=== PATIENT | female | born 1980 | race Hispanic/Latino ===

== ENCOUNTER 2021-09-19 14:40 | Observation (INO) | payer BC ==
[~2021-09-19] VITALS: Ht 154.9 cm; Wt 90.5 kg
--- NOTE | 2021-09-19 18:53 | NUR ---
PT ADVISED OF WAIT TIME. PT REPORTS HER PCP CALL DR. Ledbetter AND THE PLAN WAS FOR ADMISSION TO [facility] OP INFECTION. PT WITH RIGHT TOTAL KNEE REPLACEMENT AND INFECTION. PT STABLE. CALL LIGHT IN REACH.
[2021-09-19 21:48] LABS: MEAN CORPUSCULAR HGB 30.6 pG CALC (26.0-32.0); MEAN CORPUSCULAR HGB CONC 31.7 g/dL CAL (32.0-36.0); NEUT# 2.78 thou/uL (2.00-7.15); RED BLOOD COUNT 4.09 mill/uL (4.20-5.60); RED CELL DISTRI WIDTH 13.6 % (11.5-15.5)
[2021-09-19 21:51] LABS: HEMATOCRIT 39.4 % (37.0-47.0); HEMOGLOBIN 12.5 g/dl (12.0-16.0); MEAN CELL VOLUME 96.3 fL CALC (80.0-100.0)
[2021-09-19 22:04] LABS: ALKALINE PHOSPHATASE 75 u/l (38-126); ANION GAP 14 (6-22 (CALC)); BUN 11 mg/dL (7-17); BUN/CREATININE RATIO 19 (12-20 (CALC)); CARBON DIOXIDE 26 mmol/l (22-30); CHLORIDE 103 mmol/l (95-108); CREATININE 0.6 mg/dL (0.5-1.0); GFR > 60 ML/MIN (>=60 (CALC)); GFR FOR AFR.AMER. > 60 ML/MIN (>=60 (CALC)); POTASSIUM 3.9 mmol/l (3.5-5.1); SODIUM 138 mmol/l (137-146)
[2021-09-19 22:05] LABS: ALBUMIN 4.4 g/dL (3.2-5.0); BILIRUBIN, TOTAL 0.5 mg/dL (0.0-1.4); SGOT/AST 47 u/l (14-36)
[2021-09-20] MEDS ORDERED: ALLOPURINOL100 MG PO (01:12)
--- NOTE | 2021-09-20 01:30 | NUR ---
PT RECEIVED FROM ED TO ROOM 284. ARRIVES VIA STRETCHER ACCOMPANIED BY ED RN. PT AMBULATORY TO BED. GAIT UNSTEADY. PT DENIES PAIN AT THIS TIME. ORIENTED TO UNIT, ROOM, CALL ALVA, LIGHTS, TV. ICE WATER PROVIDED. CALL ALVA WITHIN REACH. AGREES TO CALL PRN.
--- NOTE | 2021-09-20 01:45 | NUR ---
PHYSICAL ASSESMENT COMPLETE. PT CURRENTLY COMPLAINS OF PAIN AND DISCOMFORT. PRN PAIN MEDICATION GIVEN. SCHEDULED MEDICATIONS AND PRN MEDICATION ADMINISTERED, SEE E-MAR. PT DENIES ANY NEEDS AT THIS TIME. PLAN OF CARE REVIEWED, PT DENIES QUESTIONS, VERBALIZES UNDERSTANDING. ITEMS WITHIN REACH, BED LOCKED IN LOW POSITION W/ BEDRAILS UP X2. CALL ALVA WITHIN REACH, AGREES TO CALL PRN.
--- NOTE | 2021-09-20 01:56 | NUR ---
PT TRANSFERRED TO MED SURG.
[2021-09-20 03:21] VITALS: BP 144/73
[2021-09-20 04:00] VITALS: BP 104/52
[2021-09-20 06:17] LABS: HEMOGLOBIN 11.8 g/dl (12.0-16.0); MEAN CELL VOLUME 96.8 fL CALC (80.0-100.0); MEAN CORPUSCULAR HGB 31.7 pG CALC (26.0-32.0); MEAN CORPUSCULAR HGB CONC 32.8 g/dL CAL (32.0-36.0); RED BLOOD COUNT 3.72 mill/uL (4.20-5.60); RED CELL DISTRI WIDTH 13.8 % (11.5-15.5)
[2021-09-20 06:39] LABS: ANION GAP 13 (6-22 (CALC)); BUN 13 mg/dL (7-17); BUN/CREATININE RATIO 21 (12-20 (CALC)); CARBON DIOXIDE 24 mmol/l (22-30); CHLORIDE 106 mmol/l (95-108); CREATININE 0.6 mg/dL (0.5-1.0); GFR > 60 ML/MIN (>=60 (CALC)); GFR FOR AFR.AMER. > 60 ML/MIN (>=60 (CALC)); MAGNESIUM 1.7 mg/dL (1.6-2.3); SODIUM 138 mmol/l (137-146)
[2021-09-20 06:51] LABS: POTASSIUM 4.7 mmol/l (3.5-5.1)
[2021-09-20 07:31] VITALS: BP 138/60
--- NOTE | 2021-09-20 07:31 | NUR ---
PT NOTED RESTING IN BED. WAKES EASILY. A&O X4. NO APPARENT DISTRESS NOTED. PT DENIES ANY PAIN OR DISCOMFORT AT THIS TIME. PERSONAL ICE MACHINE/WRAP TO RIGHT KNEE. PT C/O NUMBNESS AND SOME TENDERNESS TO RIGHT RIGHT KNEE, INCISION CLOSED WITH SOME SCABS NOTED. NO REDNESS OR DRAINAGE NOTED. PEDAL PULSES STRONG. IV SITE APPEARS HEALTHY, FLUSHED WELL. DISCUSSED POC AND SAFETY. PT VERBALIZED UNDERSTANDING. CALL LIGHT WITHIN REACH. WILL CONTINUE TO MONITOR.
[2021-09-20] MEDS ORDERED: CIPROFLOXACN500 MG PO (07:56)
[2021-09-20] MEDS ORDERED: ADIPEX-P37.5 M1 PO (07:57)
[2021-09-20] MEDS ORDERED: HYDROMORPHON4 MG PO (07:57)
--- NOTE | 2021-09-20 09:10 | NUR ---
S: CINDY COTTON is a 41 F who presents with pain to the right knee. She has a history of gout and arthritis. All medications in patient's chart were reviewed. O: VS: BP 138/60 mmHg, P 70 bpm, RR 18 bpm, T 97.4 F W 90.45kg, HT 154.94 cm, Scr= 0.6 g/dL, CrCl= 125.1 mL/min A: Blood culture is pending. P: Patient is on Zosyn 4.5g IV Q8H. Vancomycin ordered for pharmacy to dose. Start Vancomycin 1g IV Q12H. Vancomycin trough is drawn before the 4th dose on 09/21/21 at 1000. Pt recieved vancomycin 1g IV x1 in the ED. Vancomycin goal trough is between 10-15 mcg/mL. Pharmacy will follow and or advise on antibiotics use as needed.
--- NOTE | 2021-09-20 09:57 | NUR ---
PHYSICIAN AT BEDSIDE.
--- NOTE | 2021-09-20 11:20 | NUR ---
PT LEFT FLOOR FOR PICC LINE PLACEMENT VIA WHEELCHAIR ACCOMPAINED BY VOLUNTEER.
--- NOTE | 2021-09-20 12:07 | NUR ---
PT ARRIVED BACK TO FLOOR WITH PICC LINE IN PLACE IN NAI. PT DENIES ANY PAIN OR DISCOMFORT AT THIS TIME. CALL LIGHT WITHIN REACH. WILL CONTINUE TO MONITOR.
[2021-09-20 15:02] VITALS: BP 142/87
--- NOTE | 2021-09-20 15:42 | NUR ---
ID CONSULT WITH SAJAN VIA TELEHEALTH CALL.
--- NOTE | 2021-09-20 15:42 | NUR ---
ID CONSULT WITH DR SEN VIA TELEHEALTH CALL.
--- NOTE | 2021-09-20 17:12 | NUR ---
PHONE CALL FROM SANDHYA DOMÍNGUEZ NURSE, STATING THAT THE PATIENT DID NOT NEED TO HAVE NEEDLE ASPIRATE OF RIGHT KNEE JOINT. PHONE CALL REFERED TO ANDIE WOODARD WHO WAS THEN TO NOTIFY DR. CATALAN. DR. DOMÍNGUEZ NURSE WAS UPDATED ON POC BY THE PATIENT.
[2021-09-20 19:00] VITALS: BP 118/61
--- NOTE | 2021-09-20 19:00 | NUR ---
RECIEVED REPORT FROM LINDA MAURICIO
--- NOTE | 2021-09-20 20:12 | NUR ---
PT RESTING IN SEMI FOWLERS POSITION. PT IS A/OX3.ASSESSMENT COMPLETED. RESPIRATIONS ARE EVEN AND UNLABORED ON ROOM AIR. LUNG SOUNDS ARE CLEAR. HEART RHYTHM NORMAL. BOWEL SOUNDS ACTIVE. NAI DOUBLE LUMEN PICC FLUSHED, SITE APPEARS HEALTHY AND PATENT. SURGICAL SITE TO RIGHT KNEE WITH SCABBS, SWELLING WITH NO DRAINAGE NOTED. HOME ICE MACHINE APPLIED BY PT TO SITE.PULSESS STRONG. PT COMPLAINS OF DISCOMFORTS IN THE RIGHT KNEE BUT REFUSES PAIN MEDICATIONS. PT DENIES OF ANY ADDITIONAL NEEDS AT THIS TIME. ALL SAFETY PRECAUTIONS ARE IN PLACE WITH CALL LIGHT IN REACH. WILL CONTINUE TO MONITOR.
--- NOTE | 2021-09-21 | NUR ---
PT SLEEPING IN SEMI FOWLERS POSITION. RESPIRATIONS ARE EVEN AND UNLABORED ON ROOM AIR. NO SIGNS OF ANY PAINS OR DISCOMFORTS. ICE PACK TO RIGHT KNEE. ALL SAFTEY PRECAUTIONS ARE IN PLACE WITH CALL LIGHT IN REACH. WILL CONTINUE TO MONITOR
[2021-09-21 04:00] VITALS: BP 113/68
--- NOTE | 2021-09-21 04:16 | NUR ---
LAB DRAWL COLLECTED FROM [facility] DOUBLE LUMEN PICC. GOOD BLOOD RETURN NOTED. SITE FLUSHED WITH SALINE AND HEPARIN FLUSHED, SITE REMAINS PATENT. RESPIRATIONS ARE EVEN AND UNLABORED ON ROOM AIR. ICE MACHINE REMAISN ONE RIGHT KNEE. PT DENIES PF ANY PAIN. PT C/O OF BEING COLD, BEAR HUGGER PROVIDED. FRESH ICE WATER PROVIDED. ALL SAFTEY PRECAUTIONS ARE IN PLACE WITH CALL LIGHT IN REACH. WILL CONTINUE TO MONITOR.
[2021-09-21 05:35] LABS: HEMATOCRIT 38.1 % (37.0-47.0); HEMOGLOBIN 12.2 g/dl (12.0-16.0); MEAN CELL VOLUME 96.5 fL CALC (80.0-100.0); MEAN CORPUSCULAR HGB 30.9 pG CALC (26.0-32.0); RED BLOOD COUNT 3.95 mill/uL (4.20-5.60); RED CELL DISTRI WIDTH 13.6 % (11.5-15.5)
[2021-09-21 06:01] LABS: ANION GAP 10 (6-22 (CALC)); BUN 12 mg/dL (7-17); BUN/CREATININE RATIO 20 (12-20 (CALC)); C-REACTIVE PROTEIN < 0.5 mg/dL (0-0.9); CARBON DIOXIDE 28 mmol/l (22-30); CHLORIDE 105 mmol/l (95-108); CREATININE 0.6 mg/dL (0.5-1.0); GFR > 60 ML/MIN (>=60 (CALC)); GFR FOR AFR.AMER. > 60 ML/MIN (>=60 (CALC)); MAGNESIUM 1.6 mg/dL (1.6-2.3); POTASSIUM 4.1 mmol/l (3.5-5.1); SODIUM 139 mmol/l (137-146)
--- NOTE | 2021-09-21 07:05 | NUR ---
REPORT FROM MINA MCKEON. ASSUMED PT CARE.
[2021-09-21 07:45] VITALS: BP 140/69
--- NOTE | 2021-09-21 09:49 | NUR ---
PHYSICIAN AT BEDSIDE TO DISCUSS POC.
--- NOTE | 2021-09-21 13:33 | NUR ---
PT AMBULATING IN HALLS WITH WALKER. PT AMBULATES WITH STEADY GAIT. NO APPARENT DISTRESS NOTED. WILL CONTINUE TO MONITOR.
[2021-09-21 15:30] VITALS: BP 155/90
--- NOTE | 2021-09-21 17:30 | NUR ---
PT NOTED SITTING UP IN BED. NO APPARENT DISTRESS NOTED. PT DENIES ANY PAIN OR DISCOMFORT. DOUBLE LUMEN PICC TO NAI, DRESSING CDI. PT DENIES ANY CURRENT WANTS OR NEEDS. CALL LIGHT WITHIN REACH. WILL CONTINUE TO MONITOR.
--- NOTE | 2021-09-21 19:00 | NUR ---
recieved rpeort from opal herr
[2021-09-21 19:28] VITALS: BP 110/55
--- NOTE | 2021-09-21 20:08 | NUR ---
PT RESTING IN SEMI FOWLERS POSITION. PT IS A/OX3. ASSESSMENT AND VITALS COMPLETED. REPSIRATIONS ARE EVEN AND UNLABORED WITH NO NDISTRESS NOTED. LUNG SOUNDS ARE CLEAR. HEART RHYTHM NORMAL. BOWEL SOUNDS ARE ACTIVE, LBM 09/21/21. NAI PICC FLUSH WITH GOOD BLOOD RETURN NOTED. SWELLING AND SURGICAL SITE NOTED TO RIGHT KNEE. PT COMPLAINS OF 8/10 PAIN. PT MEDICATED WITH LORTAB. PULSES STRONG. PT DENIES OF ANY ADDITIONAL NEEDS. AT THIS TIME. ALL SAFETY PRECAUTIONS ARE IN PLACE WITH CALL LIGHT IN REACH. WILL CONTINUE TO MONITOR.
--- NOTE | 2021-09-22 00:10 | NUR ---
PT RESTING IN SEMI FOLWERS POSITION. REPSIRATIONS ARE EVEN AND UNLABORED ON ROOM AIR. NAI PICC INFUSING WITH IVF ABX. PT DENIES OF ANY PAINS OR DISCOMFORTS. HOT TEA PROVIDED. ALL SAFTEY PRECAUTIONS ARE IN PLACE WITH CALL LIGHT IN REACH. WILL CONTINUE TO MONITOR
--- NOTE | 2021-09-22 04:00 | NUR ---
PT SLEEPING IN SEMI FOWLERS POSITION. RESPIRATIONS ARE EVEN AND UNLABORED ON ROOM AIR. NAI PICC REMAINS IN PLACE. NO SIGNS OR SYMPTOMS OF ANY DISCOMFORTS. ALL SAFTEY PRECAUTIONS ARE IN PLACE WITH CALL LIGHT IN REACH. WILL CONTINUE TO MONITOR
[2021-09-22 04:55] VITALS: BP 114/61
[2021-09-22 08:00] VITALS: BP 139/65
--- NOTE | 2021-09-22 08:00 | NUR ---
SHIFT CHANGE REPORT, PT AWAKE ALERT AND ORIENTED SITTING UP IN BED, PLEASANTLY CONVERSANT, DENIES PAIN AT THIS TIME, R. KNEE SLIGHTLY SWOLEN AND WARM ON PALPATION, ALL NEEDS ADDRESSED, CALL ALVA IN REACH AND BED LOCKED IN LOWEST POSITIOIN.
[2021-09-22] MEDS ORDERED: LEVAQUIN750 M1 PO (09:25)
--- NOTE | 2021-09-22 12:00 | NUR ---
RESTING IN BED FTER AMBULATING HALLWAY AND HAVING MEAL, C/O MILD PAIN TO R. KNEE, WILL CONTINUE TO MONITOR.
--- NOTE | 2021-09-22 14:02 | NUR ---
C/O INCREASING PAIN TO R.KNE, ISSUE ADDRESSED, WILL CONTINUE TO MONITOR AND ASSESS.
--- NOTE | 2021-09-22 15:25 | NUR ---
Discharge instructions given. Patient verbalizes understanding of same. Discharged in stable condition via Wheelchair to Home with family. All belongings sent with pt.
== END 2021-09-22 15:22 | disposition home health service (06) | DRG 863 ==
LOC: ED 14:40 → ED-I 21:48 → ED 22:16 → MS2 22:17
PROVIDERS: Nurse Practitioner; ADMIT Internal Medicine; ATTEND Internal Medicine
PROC: 02HV33Z Insertion of Infusion Device into Superior Vena Cava, Percutaneous Approach (ICD-10-PCS; principal; 2021-09-19)
PROC: B518ZZA Fluoroscopy of Superior Vena Cava, Guidance (ICD-10-PCS; 2021-09-19)
DX: T81.42XA Infection following a procedure, deep incisional surgical site, initial encounter (principal); B96.5 Pseudomonas (aeruginosa) (mallei) (pseudomallei) as the cause of diseases classified elsewhere; B96.89 Other specified bacterial agents as the cause of diseases classified elsewhere; R74.01 Elevation of levels of liver transaminase levels; Y83.1 Surgical operation with implant of artificial internal device as the cause of abnormal reaction of the patient, or of later complication, without mention of misadventure at the time of the procedure; Z96.651 Presence of right artificial knee joint
CPT/HCPCS: G0378; J1650; Q3014

== ENCOUNTER 2022-01-05 08:52 | Emergency (ER) | payer BC ==
[~2022-01-05] VITALS: Ht 154.9 cm; Wt 88.4 kg
[~2022-01-05 08:52] MED LIST: ADIPEX-P37.5 M1 PO; ALLOPURINOL100 MG PO; CIPROFLOXACN500 MG PO; HYDROMORPHON4 MG PO; LEVAQUIN750 M1 PO
[2022-01-05 09:54] LABS: ALBUMIN 4.3 g/dL (3.2-5.0); ALKALINE PHOSPHATASE 61 u/l (38-126); ANION GAP 12 (6-22 (CALC)); BILIRUBIN, TOTAL 0.7 mg/dL (0.0-1.4); BUN 11 mg/dL (7-17); BUN/CREATININE RATIO 18 (12-20 (CALC)); CARBON DIOXIDE 26 mmol/l (22-30); CHLORIDE 106 mmol/l (95-108); CREATININE 0.6 mg/dL (0.5-1.0); GFR > 60 ML/MIN (>=60 (CALC)); GFR FOR AFR.AMER. > 60 ML/MIN (>=60 (CALC)); POTASSIUM 4.1 mmol/l (3.5-5.1); SGOT/AST 68 u/l (14-36); SODIUM 141 mmol/l (137-146); TOTAL PROTEIN 7.3 g/dL (6.3-8.2)
[2022-01-05 11:08] LABS: HEMATOCRIT 39.6 % (37.0-47.0); HEMOGLOBIN 13.4 g/dl (12.0-16.0); IMMATURE GRANULOCYTES 0.2 % (0.0-5.0); MEAN CELL VOLUME 95.4 fL CALC (80.0-100.0); MEAN CORPUSCULAR HGB 32.3 pG CALC (26.0-32.0); MEAN CORPUSCULAR HGB CONC 33.8 g/dL CAL (32.0-36.0); NEUT# 3.59 thou/uL (2.00-7.15); RED BLOOD COUNT 4.15 mill/uL (4.20-5.60); RED CELL DISTRI WIDTH 13.5 % (11.5-15.5)
[2022-01-05 11:40] VITALS: BP 127/73
== END 2022-01-05 11:53 | disposition home or self-care (01) | DRG 179 ==
LOC: ED 08:52
PROVIDERS: Family Medicine
DX: U07.1 COVID-19 (principal); R05.9 Cough, unspecified; J02.9 Acute pharyngitis, unspecified; R50.9 Fever, unspecified; R07.9 Chest pain, unspecified; M10.9 Gout, unspecified

== ENCOUNTER 2022-05-22 11:19 | Emergency (ER) | payer BC ==
[~2022-05-22] VITALS: Ht 154.9 cm; Wt 89.1 kg
[2022-05-22 11:31] VITALS: BP 123/78
[2022-05-22 12:25] LABS: URINE BILIRUBIN - DIPSTICK NEGATIVE (NEGATIVE); URINE BLOOD DIPSTICK NEGATIVE (NEGATIVE); URINE COLOR YELLOW; URINE GLUCOSE - DIPSTICK NEGATIVE (NEGATIVE); URINE KETONE NEGATIVE (NEGATIVE); URINE LEUK ESTERASE NEGATIVE (NEGATIVE); URINE PH 5.5 (4.5-8.0); URINE PROTEIN - DIPSTICK NEGATIVE (NEG-TRACE); URINE UROBILINOGEN - DIPSTICK 0.2 E.U./dL (0.2)
[2022-05-22 12:26] LABS: URINE NITRITE - DIPSTICK NEGATIVE (Negative)
[2022-05-22] MEDS ORDERED: METHOCARBAMOL500 MG PO (14:08)
[2022-05-22 14:20] VITALS: BP 123/78
== END 2022-05-22 14:25 | disposition home or self-care (01) | DRG 204 ==
LOC: ED 11:19
PROVIDERS: Family Medicine
DX: R07.1 Chest pain on breathing (principal)

== ENCOUNTER 2023-02-13 12:09 | Emergency (ER) | payer BC ==
[~2023-02-13] VITALS: Ht 154.9 cm; Wt 91.8 kg
[2023-02-13] VITALS (8 sets, daily range): BP systolic 113–133; BP diastolic 59–79
[~2023-02-13 12:09] MED LIST changes: +METHOCARBAMOL500 MG PO
[2023-02-13 12:45] LABS: BASO% 0.6 % (0-3); EOS% 2.2 % (0-8); HEMATOCRIT 40.2 % (37.0-47.0); HEMOGLOBIN 13.5 g/dl (12.0-16.0); IMMATURE GRANULOCYTES 0.2 % (0.0-5.0); MEAN CELL VOLUME 94.4 fL CALC (80.0-100.0); MEAN CORPUSCULAR HGB 31.7 pG CALC (26.0-32.0); MEAN CORPUSCULAR HGB CONC 33.6 g/dL CAL (32.0-36.0); MONO% 8.4 % (2-13); NEUT# 3.05 thou/uL (2.00-7.15); NEUT% 59.6 % (42-76); RED BLOOD COUNT 4.26 mill/uL (4.20-5.60); RED CELL DISTRI WIDTH 12.4 % (11.5-15.5)
[2023-02-13 12:57] LABS: ALBUMIN 4.8 g/dL (3.2-5.0); ALKALINE PHOSPHATASE 58 u/l (38-126); ANION GAP 16 (6-22 (CALC)); BILIRUBIN, TOTAL 0.8 mg/dL (0.02-1.3); BUN 12 mg/dL (7-17); BUN/CREATININE RATIO 18 (12-20 (CALC)); CARBON DIOXIDE 23 mmol/l (22-30); CHLORIDE 103 mmol/l (95-108); CREATININE 0.7 mg/dL (0.5-1.0); GFR FOR AFR.AMER. > 60 ML/MIN (>=60 (CALC)); GFR OTHER RACES > 60 ML/MIN (>=60 (CALC)); POTASSIUM 4.3 mmol/l (3.5-5.1); SGOT/AST 77 u/l (14-36); SODIUM 138 mmol/l (137-146); TOTAL PROTEIN 7.9 g/dL (6.3-8.2)
[2023-02-13 13:31] LABS: URINE BILIRUBIN - DIPSTICK NEGATIVE (NEGATIVE); URINE BLOOD DIPSTICK NEGATIVE (NEGATIVE); URINE COLOR YELLOW; URINE GLUCOSE - DIPSTICK NEGATIVE (NEGATIVE); URINE KETONE NEGATIVE (NEGATIVE); URINE LEUK ESTERASE NEGATIVE (NEGATIVE); URINE PROTEIN - DIPSTICK NEGATIVE (NEG-TRACE); URINE UROBILINOGEN - DIPSTICK 0.2 E.U./dL (0.2)
[2023-02-13 13:37] LABS: URINE NITRITE - DIPSTICK NEGATIVE (Negative)
[2023-02-13] MEDS ORDERED: LORTAB 5/3255 MG PO (14:11)
[2023-02-13] MEDS ORDERED: NAPROXEN500 MG PO (14:11)
[2023-02-13] MEDS ORDERED: METHOCARBAMOL500 MG PO (14:11)
[2023-02-13] MEDS ORDERED: MIRALAX17 GM PO (14:13)
== END 2023-02-13 14:22 | disposition home or self-care (01) | DRG 552 ==
LOC: ED 12:09
PROVIDERS: Nurse Practitioner
DX: M54.9 Dorsalgia, unspecified (principal); K59.00 Constipation, unspecified